=== PATIENT | female | born 1960 ===

== ENCOUNTER 2023-11-03 05:19 | Day surgery (SDC) | payer OTHER ==
[2023-11-02 09:15] VITALS: BP 160/80
[2023-11-02 09:22] LABS: HEMATOCRIT 37.8 % (36.0-45.00); HEMOGLOBIN 12.6 g/dL (12.0-15.00); MEAN CELL VOLUME 96.5 fL (80.00-100.00); MEAN CORPUSCULAR HEMOGLOBIN 32.1 pg (27.00-32.0); MEAN CORPUSCULAR HGB CONC 33.3 g/dl (32.0-36.0); PLATELET COUNT 257 K/uL (150-450); RED BLOOD COUNT 3.92 M/uL (4.00-6.00); RED CELL DISTRIBUTION WIDTH 13.3 % (11.5-14.5)
[2023-11-02 09:25] LABS: PH,URINE 5.5 (5.0-8.0); URINE APPEARANCE Clear; URINE BILIRRUBIN Negative (NEGATIVE); URINE BLOOD Negative; URINE COLOR Yellow; URINE GLUCOSE Negative (NEGATIVE); URINE KETONE Negative (NEGATIVE); URINE LEUKOCYTE Negative; URINE NITRATE Negative; URINE PROTEIN Negative (NEGATIVE); URINE UROBILINOGEN 0.2 E.U./dl
[2023-11-02 09:26] LABS: URINE BACTERIA 75.5 uL (0.0-1933); URINE EPITHELIAL CELLS 4.9 uL (0.0-38.8); URINE RBC 12.9 uL (0.0-20.8); URINE WBC 3.7 uL (0.0-23.2)
[2023-11-02 09:41] LABS: INR 1.05; PARTIAL THROMBOPLASTIN TIME 27.3 SECONDS (22.0-34.0); PROTHROMBIN TIME 11.4 SECONDS (9.0-11.5)
[2023-11-02 10:10] LABS: ALBUMIN 3.7 gm/dL (3.4-5.0); BILIRUBIN TOTAL 0.56 mg/dL (0.3-1.2); CALCIUM 9.9 mg/dL (8.5-10.1); CREATININE SERUM 0.36 mg/dL (0.55-1.02); GFR 182.05; GLOBULINA 2.7 G/DL (2.4-3.5); POTASSIUM 4.15 mEq/L (3.5-5.1); TOTAL PROTEIN 6.4 gm/dL (6.4-8.2)
[~2023-11-03] VITALS: Ht 152.4 cm; Wt 68.0 kg
[~2023-11-03 05:19] MED LIST: ATACAND16 MG PO; KEPPRA500 MG PO; OMEGA-31000 MG PO; SYNTHROID150 MCG PO
[2023-11-03] MEDS ORDERED: CEFAZOLIN SODIUM 1,000 MG VIAL IV ONE (13:45)
[2023-11-03] MEDS ORDERED: MORPHINE SULFATE 4 MG/ML VIAL IV ONE ×3 (15:05→16:50)
== END 2023-11-03 17:50 | disposition home or self-care (01) ==
LOC: CIR.AMB 05:19
PROVIDERS: ATTEND Orthopaedic Surgery Hand Surgery
DX: S62.323A Displaced fracture of shaft of third metacarpal bone, left hand, initial encounter for closed fracture (principal); S62.325A Displaced fracture of shaft of fourth metacarpal bone, left hand, initial encounter for closed fracture; I10 Essential (primary) hypertension; F32.A Depression, unspecified